=== PATIENT | female | born 1980 | race Caucasian/White ===

== ENCOUNTER 2023-09-30 12:35 | Emergency (ER) | payer SELFPAY ==
[2023-09-30] VITALS (9 sets, daily range): BP systolic 112–148; BP diastolic 62–100; PULSE 74–110; RESP 16–20; TEMP 36.7; O2SAT 99–100; BMI 22.6
--- NOTE | 2023-09-30 12:38 | HMH.EDGENADL ---
Discharge Plan Disposition Patient Disposition: Home, Self-Care Prescriptions Prescriptions: New prednisone 20 mg tablet 40 mg PO DAILY 5 Days Qty: 10 0RF methocarbamol 750 mg tablet 1,500 mg PO TID 5 Days Qty: 30 0RF No Action losartan-hydrochlorothiazide 50-12.5 mg tablet 1 tab PO DAILY Patient Comments: TAKE 1 TABLET BY MOUTH ONCE DAILY Referrals Follow up/Referrals: Provider,Referral, [Referring] - See instructions Activity Restrictions/Add. Instructions Additional Instructions/Restrictions: Call your family doctor to establish care for this visit to the emergency department and schedule follow-up within 48 hours to ensure improvement. If you have any worsening of your condition or any other concerning signs or symptoms, return to the emergency department or your primary care doctor for further evaluation. Prednisone each morning for the next 5 days with plenty of food and water to prevent GI upset and kidney dysfunction. Clinical Impressions Clinical Impression: Strain of lumbar region Instructions Patient Instructions: DI for Low Back Pain Discharge ED Provider: Leon German General Adult HPI <Yuri Roy MD - Last Filed: 09/30/23 15:20> General Chief complaint: Back Pain/Injury Stated complaint: lower back pain Time Seen by Provider: 09/30/23 12:38 History of Present Illness HPI narrative: The patient presents with a chief complaint of severe lower back pain that started on Friday. She reports that the pain worsened after bending over to pick something up, feeling a crunch in the back. The patient has a history of a back injury in March 2022, which was managed at [facility] with an RFA, epidural injections. 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 Imaging at that time revealed a herniated disc at L2-L3, pressing on a nerve and causing radiating pain down the leg, through the groin, and stopping at the knee. Another imaging showed issues at L4-L5 as well. The patient underwent epidural injections and bilateral ablation in January of the past year. Since Friday, she has experienced constant pain in the lower back on the left side, which comes up a little bit onto the left side. She reports feeling significant pressure when sitting straight up, and associated numbness and changes in sensation in her groin area. Additionally, she has noted several episodes of urinary incontinence which is a new symptom for her, with no associated pain, but denies any bowel incontinence. The patient has a medical history of type 2 diabetes and is currently taking metformin and glipizide. She recently stopped taking Ozempic. She denies any fevers or chills. Denies any recreational drug use. Please note that above description of symptoms, in this electronic medical record under categorization of recalled from ER triage doctor by RN are reflective of an initial nursing assessment, however, is not reflective of my full history and physical exam that was personally taken and clarified. Consequentially, this preceding description of symptoms, which may include the patient's categorized chief complaint in the EMR, do not reflect my personal clinical impression, and the ultimate description of history of present illness and patient stated complaints should be deferred to this section of the note. Unless stated otherwise or congruent with this section of the note, additional signs, symptoms, or incongruence should be interpreted as inaccurate with my clinical impression. Related Data Home Medications Medication Instructions Recorded Confirmed losartan 50 mg-hydrochlorothiazide 1 tab PO DAILY 09/30/23 09/30/23 12.5 mg tablet Previous Rx's Medication Instructions Recorded methocarbamol 750 mg tablet 1,500 mg (2 x 750 mg) PO TID 5 09/30/23 days #30 tabs prednisone 20 mg tablet 40 mg (2 x 20 mg) PO DAILY 5 days 09/30/23 #10 tabs Allergies Allergy/AdvReac Type Severity Reaction Status Date / Time No Known Allergies Allergy Verified 09/30/23 13:15 [facility] <Yuri Roy MD - Last Filed: 09/30/23 15:20> [facility] Disclaimer: The information contained in this section may have been updated after the patient was seen, as this information can be updated by other users. Social History (Updated 09/30/23 @ 15:20 by Yuri Roy MD) Smoking Status: Never smoker alcohol intake: former current occupational status: other Travel in the last 8 weeks: None <Yuri Roy MD - Last Filed: 09/30/23 15:20> ROS Obtained: Yes other As per HPI Physical Exam <Yuri Roy MD - Last Filed: 09/30/23 15:20> General General appearance: alert and in no apparent distress Head Head exam: atraumatic and normocephalic Eye Eye exam: Present normal appearance Neck Neck exam: Present normal inspection Chest Chest inspection: Present normal inspection and symmetric chest wall rise Respiratory Respiratory exam: Present normal lung sounds bilaterally; Absent respiratory distress Cardiovascular Cardiovascular exam: Present regular rate and normal rhythm Abdominal Exam Abdominal exam: Present soft Neurological Exam Neurological exam: Present alert and oriented X3 Psychiatric Psychiatric exam: Present normal affect and normal mood Skin Skin exam: Present warm and dry Other Other exam information: 1+ reflexes in bilateral lower extremities, left S1 distributional paresthesias, positive straight leg raise test, distal pulses palpable and equal in bilateral lower extremities, midline and left paraspinal tenderness to palpation. Medical Decision Making <Yuri Roy MD - Last Filed: 09/30/23 15:20> Medical Records Medical records reviewed: Yes I reviewed the patient's medical records. Walter Inquiry Pt receiving controlled substance: No Vital Signs: 09/30/23 12:36 09/30/23 13:15 09/30/23 13:24 Temperature 98.1 F Temperature Source Oral Pulse Rate 110 H Pulse Rate [Right] 108 H Respiratory Rate 20 Blood Pressure 148/89 H Blood Pressure [Right Arm] 148/100 H Blood Pressure Mean Blood Pressure Mean [Right Arm] 116 Blood Pressure Source [Right Arm] Automatic Cuff 02 Sat by Pulse Oximetry 99 99 99 Oxygen Delivery Method Room Air Room Air 09/30/23 13:30 09/30/23 14:00 09/30/23 14:30 Temperature Temperature Source Pulse Rate 101 H 89 74 Pulse Rate [Right] Respiratory Rate Blood Pressure 143/90 H 134/70 127/62 Blood Pressure [Right Arm] Blood Pressure Mean 118 101 Blood Pressure Mean [Right Arm] Blood Pressure Source [Right Arm] 02 Sat by Pulse Oximetry 99 99 100 Oxygen Delivery Method Room Air 09/30/23 15:00 09/30/23 15:30 Temperature Temperature Source Pulse Rate 74 74 Pulse Rate [Right] Respiratory Rate Blood Pressure 126/79 118/70 Blood Pressure [Right Arm] Blood Pressure Mean 100 86 Blood Pressure Mean [Right Arm] Blood Pressure Source [Right Arm] 02 Sat by Pulse Oximetry 100 100 Oxygen Delivery Method Room Air Lab Data Lab Results 09/30/23 12:41: Urine Color Yellow, Urine Appearance Clear, Urine pH 6.0, Ur Specific [place] 1.010, Urine Protein Negative, Urine Glucose (UA) Negative, Urine Ketones Negative, Urine Blood Negative, Urine Nitrate Negative, Urine Bilirubin Negative, Urine Urobilinogen 0.2, Ur Leukocyte Esterase Negative, Urine RBC None, Urine WBC None, Ur Squamous Epith Cells 3-5, Urine Bacteria None 09/30/23 13:25: WBC 11.8 H, RBC 4.89, Hgb 12.8, Hct 41.1, MCV 84.1, MCH 26.2 L, MCHC 31.2 L, RDW 15.1, Plt Count 414, MPV 8.0, Neut % (Auto) 71.2, Lymph % (Auto) 22.2, [place] % (Auto) 4.1, Eos % (Auto) 1.5, Baso % (Auto) 1.0, Neut # (Auto) 8.4 H, Lymph # (Auto) 2.6, [place] # (Auto) 0.5, Eos # (Auto) 0.2, Baso # (Auto) 0.1, Sodium 136, Potassium 3.8, Chloride 103, Carbon Dioxide 23, Anion Gap 13.8, BUN 8, Creatinine 0.70, Estimated Creat Clear 104, Estimated GFR 91, Est GFR ( Amer) 111, Glucose 144 H, Calcium 9.5, Total Bilirubin 0.3, AST 27, ALT 29, Alkaline Phosphatase 71, Total Protein 7.6, Albumin 4.5, Globulin 3.1, Albumin/Globulin Ratio 1.5 09/30/23 13:25 09/30/23 13:25 Orders (Tests/Meds): ED MEDICATIONS Discontinued Medications Generic Name Dose Route Start Last Admin Trade Name Freq PRN Reason Stop Dose Admin Dexamethasone Sodium Phosphate 10 mg 09/30/23 15:31 09/30/23 17:10 Dexamethasone 4mg/Ml 1ml Vial IV 09/30/23 15:32 10 mg ONCE ONE Administration Gadoteridol 12 ml 09/30/23 16:50 09/30/23 16:51 Gadoteridol Inj 20ml Syringe IV 09/30/23 16:51 12 ml ONCE ONE Administration Hydromorphone HCl 0.5 mg 09/30/23 13:08 09/30/23 13:18 Hydromorphone 4 Mg/Ml Syringe IV 09/30/23 13:09 0.5 mg ONCE ONE Administration Sodium Chloride 10 ml 09/30/23 16:50 09/30/23 16:51 Sodium Chloride 0.9% 10ml Syr (Rad Only) IV 09/30/23 16:51 10 ml ONCE ONE Administration ORDERS Category Date Time Status CBC w/Auto Diff [Complete Blood Count Auto Diff] Stat Lab 09/30/23 13:25 Completed CMP [Comprehensive Metabolic Panel] Stat Lab 09/30/23 13:25 Completed UA [Urinalysis and Microscopic] Stat Lab 09/30/23 12:41 Completed Medical Decision Narrative: Patient with history and exam per above presenting for evaluation of back pain Diagnoses considered include cauda equina syndrome, conus medullary syndrome, radiculopathy, lumbosacral strain, lower clinical index of suspicion for epidural abscess, malignancy, or pathologic fracture. ED workup and treatment included: CBC, CMP, urinalysis, postvoid residual 140 immediately after voiding on bladder scan, consequently, in commendation with new history of incontinence, paresthesias and saddle distribution, as well as significant worsening pain in the setting of known disc disease, MRI ordered to further evaluate after shared decision making involving MRI here versus transfer to outside hospital. She was treated with hydromorphone 0.5 mg x 1. Observation status was initiated while awaiting results of MRI. Imaging is pending at this time. Care was transferred to incoming physician. <Leon German MD - Last Filed: 09/30/23 17:45> Vital Signs: 09/30/23 12:36 09/30/23 13:15 09/30/23 13:24 Temperature 98.1 F Temperature Source Oral Pulse Rate 110 H Pulse Rate [Right] 108 H Respiratory Rate 20 Blood Pressure 148/89 H Blood Pressure [Right Arm] 148/100 H Blood Pressure Mean Blood Pressure Mean [Right Arm] 116 Blood Pressure Source [Right Arm] Automatic Cuff 02 Sat by Pulse Oximetry 99 99 99 Oxygen Delivery Method Room Air Room Air 09/30/23 13:30 09/30/23 14:00 09/30/23 14:30 Temperature Temperature Source Pulse Rate 101 H 89 74 Pulse Rate [Right] Respiratory Rate Blood Pressure 143/90 H 134/70 127/62 Blood Pressure [Right Arm] Blood Pressure Mean 118 101 Blood Pressure Mean [Right Arm] Blood Pressure Source [Right Arm] 02 Sat by Pulse Oximetry 99 99 100 Oxygen Delivery Method Room Air 09/30/23 15:00 09/30/23 15:30 Temperature Temperature Source Pulse Rate 74 74 Pulse Rate [Right] Respiratory Rate Blood Pressure 126/79 118/70 Blood Pressure [Right Arm] Blood Pressure Mean 100 86 Blood Pressure Mean [Right Arm] Blood Pressure Source [Right Arm] 02 Sat by Pulse Oximetry 100 100 Oxygen Delivery Method Room Air Lab Data Lab Results 09/30/23 12:41: Urine Color Yellow, Urine Appearance Clear, Urine pH 6.0, Ur Specific [place] 1.010, Urine Protein Negative, Urine Glucose (UA) Negative, Urine Ketones Negative, Urine Blood Negative, Urine Nitrate Negative, Urine Bilirubin Negative, Urine Urobilinogen 0.2, Ur Leukocyte Esterase Negative, Urine RBC None, Urine WBC None, Ur Squamous Epith Cells 3-5, Urine Bacteria None 09/30/23 13:25: WBC 11.8 H, RBC 4.89, Hgb 12.8, Hct 41.1, MCV 84.1, MCH 26.2 L, MCHC 31.2 L, RDW 15.1, Plt Count 414, MPV 8.0, Neut % (Auto) 71.2, Lymph % (Auto) 22.2, [place] % (Auto) 4.1, Eos % (Auto) 1.5, Baso % (Auto) 1.0, Neut # (Auto) 8.4 H, Lymph # (Auto) 2.6, [place] # (Auto) 0.5, Eos # (Auto) 0.2, Baso # (Auto) 0.1, Sodium 136, Potassium 3.8, Chloride 103, Carbon Dioxide 23, Anion Gap 13.8, BUN 8, Creatinine 0.70, Estimated Creat Clear 104, Estimated GFR 91, Est GFR ( Amer) 111, Glucose 144 H, Calcium 9.5, Total Bilirubin 0.3, AST 27, ALT 29, Alkaline Phosphatase 71, Total Protein 7.6, Albumin 4.5, Globulin 3.1, Albumin/Globulin Ratio 1.5 Orders (Tests/Meds): ED MEDICATIONS Discontinued Medications Generic Name Dose Route Start Last Admin Trade Name Freq PRN Reason Stop Dose Admin Dexamethasone Sodium Phosphate 10 mg 09/30/23 15:31 09/30/23 17:10 Dexamethasone 4mg/Ml 1ml Vial IV 09/30/23 15:32 10 mg ONCE ONE Administration Gadoteridol 12 ml 09/30/23 16:50 09/30/23 16:51 Gadoteridol Inj 20ml Syringe IV 09/30/23 16:51 12 ml ONCE ONE Administration Hydromorphone HCl 0.5 mg 09/30/23 13:08 09/30/23 13:18 Hydromorphone 4 Mg/Ml Syringe IV 09/30/23 13:09 0.5 mg ONCE ONE Administration Sodium Chloride 10 ml 09/30/23 16:50 09/30/23 16:51 Sodium Chloride 0.9% 10ml Syr (Rad Only) IV 09/30/23 16:51 10 ml ONCE ONE Administration ORDERS Category Date Time Status CBC w/Auto Diff [Complete Blood Count Auto Diff] Stat Lab 09/30/23 13:25 Completed CMP [Comprehensive Metabolic Panel] Stat Lab 09/30/23 13:25 Completed UA [Urinalysis and Microscopic] Stat Lab 09/30/23 12:41 Completed Medical Decision Narrative: Patient with history and exam per above presenting for evaluation of back pain Diagnoses considered include cauda equina syndrome, conus medullary syndrome, radiculopathy, lumbosacral strain, lower clinical index of suspicion for epidural abscess, malignancy, or pathologic fracture. ED workup and treatment included: CBC, CMP, urinalysis, postvoid residual 140 immediately after voiding on bladder scan, consequently, in commendation with new history of incontinence, paresthesias and saddle distribution, as well as significant worsening pain in the setting of known disc disease, MRI ordered to further evaluate after shared decision making involving MRI here versus transfer to outside hospital. She was treated with hydromorphone 0.5 mg x 1. Observation status was initiated while awaiting results of MRI. Imaging is pending at this time. Care was transferred to incoming physician. Maxi: I assumed primary responsibility for this patient after signout from previous physician. On my evaluation, patient ambulatory, very well-appearing. Able to void spontaneously. Patient was given 10 mg Decadron out of concern for radiculopathy. Independent rotation of workup with no acute findings on hematologic or urine. MRI of the lumbar spine was independently interpreted and without any significant disc herniations or stenosis posteriorly. Widely patent spinal canal. Because patient at baseline without signs or symptoms of clinical decompensation, deemed appropriate for discharge. Results were relayed to patient who voiced understanding and were agreeable to outpatient management and follow up. I discussed my clinical impression with patient and answered all questions. At this time, the evidence for any other entities in the differential is insufficient to warrant any further testing or ED observation. This was explained as well. Advisory was given that persistent or worsening symptoms require further evaluation. I confirmed the understanding of this discussion. Critical Care <Yuri Roy MD - Last Filed: 09/30/23 15:20> Critical Care Time Critical Care Time: No
--- NOTE | 2023-09-30 12:57 | PC.NURSE ---
Dr. Roy at [facility] for pt eval
[2023-09-30 13:19] LABS: Microscopic, Urine URINE MICROSCOPIC (MICROSCOPIC)
[2023-09-30 13:22] LABS: Appearance,Urine CLEAR (Clear); Bilirubin,Urine Negative (Negative); Blood, Urine Negative (Negative); Color,Urine YELLOW (Yellow); Glucose,Urine (UA) Negative (Negative); Ketones,Urine Negative (Negative); Leukocyte Esterase,Urine Negative (Negative); Nitrate,Urine Negative (Negative); Protein,Urine Negative (Negative); Urobilinogen,Urine 0.2 EU/dl (0.2)
[2023-09-30 13:46] LABS: Chloride 103 mmol/L (98-107); Potassium 3.8 mmoL/L (3.5-5.1); Sodium 136 mmol/L (136-145)
[2023-09-30 13:48] LABS: Blood Urea Nitrogen 8 mg/dl (7-17); Creatinine Clearance Estimated 104 mL/min (50-200); Estimated Glomerular Filt Rate 91 ml/min (>60); GFR (African American) 111 ML/MIN (>60)
[2023-09-30 13:49] LABS: Alanine Aminotransferase 29 U/L (12-78); Albumin Level 4.5 g/dl (3.5-5.0); Albumin/Globulin Ratio 1.5 (1.1-1.8); Alkaline Phosphatase 71 U/L (38-126); Anion Gap 13.8 mEq/L (5-15); Aspartate Amino Transferase 27 U/L (14-36); Bilirubin,Total 0.3 mg/dl (0.2-1.3); Calcium 9.5 mg/dl (8.4-10.2); Carbon Dioxide 23 mmol/L (22.0-30.0); Globulin 3.1 g/dL (1.3-3.2); Glucose 144 mg/dl (74-100); Total Protein,Serum 7.6 g/dl (6.3-8.2)
--- NOTE | 2023-09-30 13:49 | PC.NURSE ---
pt had 470ML in her bladder on bladder scan. pt was able to ambulate and void
[2023-09-30 13:50] LABS: Basophils # 0.1 K/mm3 (0-0.2); Eosinophils # 0.2 K/mm3 (0.0-0.4); Eosinophils % 1.5 % (0.1-12.0); Hematocrit 41.1 % (37.0-47.0); Hemoglobin 12.8 g/dL (12.2-16.2); Lymphocytes # 2.6 K/mm3 (0.7-4.5); Lymphocytes % 22.2 % (10-50); Mean Corpuscular HGB Conc 31.2 g/dL (31.8-35.4); Mean Corpuscular Hemoglobin 26.2 pg (27.0-31.2); Mean Corpuscular Volume 84.1 fl (81-99); Monocytes # 0.5 K/mm3 (0.1-1.0); Monocytes % 4.1 % (1.7-9.3); Neutrophils # 8.4 K/mm3 (1.8-7.8); Neutrophils % 71.2 % (37.0-80.0); Platelet Count 414 K/mm3 (142-424); Red Blood Count 4.89 M/mm3 (4.20-5.40); Red Cell Distribution Width 15.1 % (11.5-17.5); White Blood Count 11.8 K/mm3 (4.8-10.8)
--- NOTE | 2023-09-30 13:55 | PC.NURSE ---
post void bladder scan 140 ml
--- NOTE | 2023-09-30 14:31 | MR_ITS ---
PROCEDURE INFORMATION: Exam: MR Lumbar Spine Without and With Contrast Exam date and time: 09/30/2023 4:24 PM Age: 42 years old Clinical indication: Other: Low back pain; Additional info: Back pain, urinary retention, concern for deny TECHNIQUE: Imaging protocol: Magnetic resonance imaging of the lumbar spine without and with contrast. Contrast material: ISOVUE; Contrast volume: 12 ml; Contrast route: IV; COMPARISON: No relevant prior studies available. FINDINGS: Bones/joints: Sudden loss of T2 disc signal and height from L4 through S1. Normal marrow signal and vertebral body height. Spinal cord: Visualized cord, conus medullaris and cauda equina are unremarkable without compression. L1-L2: No significant disc bulge or herniation. No severe spinal canal stenosis. No significant neural foraminal narrowing. L2-L3: L2-L3 minimal posterior disc protrusion without significant spinal canal or neural foraminal stenosis. L3-L4: L3-L4 small upfo-tklhthy-ipnq-right posterior disc protrusion resulting in mild left greater than right neural foraminal stenosis without significant spinal canal stenosis. L4-L5: L4-L5 small broad-based posterior disc protrusion with T2 hyperintensity zone at the left subarticular recess resulting in mild bilateral neural foraminal stenosis without significant spinal canal stenosis. L5-S1: L5-S1 small posterior disc protrusion with T2 hyperintensity zone resulting in mild bilateral neural foraminal stenosis without significant spinal canal stenosis. Soft tissues: Unremarkable. IMPRESSION: Multilevel mild discogenic degenerative changes greatest at L4-L5 with neural foraminal stenosis as detailed above. No MRI evidence of cauda equina
--- NOTE | 2023-09-30 14:34 | PC.NURSE ---
[facility] [place]/Annalisa approved for MRI [facility] states that they can do the MRI around 1700 aware
--- NOTE | 2023-09-30 14:39 | PC.NURSE ---
[place] given, remote for tv, call light in place, lights dimmed and pt updated about MRI at 1700
--- NOTE | 2023-09-30 15:55 | PC.NURSE ---
MRI called and were on the way to get this pt
--- NOTE | 2023-09-30 15:59 | PC.NURSE ---
Pt gone to MRI via wheelchair
[2023-09-30] MEDS: SODIUM CHLORIDE 0.9% 10ML SYR (RAD ONLY) 10 ML IV (16:51)
[2023-09-30] MEDS: GADOTERIDOL INJ 20ML SYRINGE 12 ML IV (16:51)
--- NOTE | 2023-09-30 17:06 | PC.NURSE ---
Pt returned to room from MRI
[2023-09-30] MEDS: DEXAMETHASONE 4MG/ML 1ML VIAL 10 MG IV (17:10)
== END 2023-09-30 18:00 | disposition home or self-care (01) ==
PROVIDERS: Emergency Medicine; Emergency Provider Emergency Medicine; PCP Pediatrics
DX: S39.012A Strain of muscle, fascia and tendon of lower back, initial encounter (principal); R32 Unspecified urinary incontinence; R20.2 Paresthesia of skin; E11.9 Type 2 diabetes mellitus without complications; Z87.39 Personal history of other diseases of the musculoskeletal system and connective tissue; X50.0XXA Overexertion from strenuous movement or load, initial encounter; Z79.84 Long term (current) use of oral hypoglycemic drugs
CPT/HCPCS: 72158; 80053; 81001; 85025; 96374; 96375; 99285; A9576

== ENCOUNTER 2024-05-14 16:42 | Outpatient (CLI) | payer OTHER, SELFPAY ==
--- NOTE | 2024-05-14 16:50 | MR_ITS ---
PROCEDURE INFORMATION: Exam: MR Lumbar Spine Without Contrast Exam date and time: 05/14/2024 4:52 PM Age: 43 years old Clinical indication: Low back pain; Additional info: Increased lbp TECHNIQUE: Imaging protocol: Magnetic resonance imaging of the lumbar spine without contrast. COMPARISON: MR LUMBAR SPINE WO/W CON 09/30/2023 4:24 PM FINDINGS: Bones/joints: The alignment is anatomic. There is no fracture. No suspicious marrow signal. There is disc desiccation L4-S1 unchanged without significant loss of disc space height. Spinal cord: Visualized cord, conus medullaris and cauda equina are unremarkable. L1-L2: No significant disc bulge or herniation. No severe spinal canal stenosis. No significant neural foraminal narrowing. L2-L3: There is minimal left-sided eccentric diffuse disc bulging present without stenosis unchanged. L3-L4: There is diffuse disc bulging with superimposed left-sided subarticular/foraminal zone focal disc protrusion without significant spinal canal stenosis unchanged. Minimal facet arthrosis with mild left neural foraminal stenosis unchanged. L4-L5: Minimal diffuse disc bulging and facet arthrosis without spinal canal stenosis unchanged. Small posterior annular disc tear again present. Stable mild bilateral neural foraminal stenosis. L5-S1: There is a minimal central focal disc protrusion with superimposed diffuse disc bulging and posterior annular tear again present not causing spinal canal stenosis. Minimal bilateral facet arthrosis with minimal narrowing of both neural foramina unchanged. Soft tissues: Unremarkable. IMPRESSION: Stable mild degenerative disc disease of the lumbar spine without significant spinal canal stenosis, as described.
== END 2024-05-14 23:59 | disposition home or self-care (01) ==
LOC: RAD 16:44
PROVIDERS: PCP Family Medicine; Visit Provider Nurse Practitioner Family
DX: M48.061 Spinal stenosis, lumbar region without neurogenic claudication (principal); M54.50 Low back pain, unspecified; M79.605 Pain in left leg
CPT/HCPCS: 72148

== ENCOUNTER 2024-08-04 08:26 | Outpatient (CLI) | payer OTHER, SELFPAY ==
[2024-08-04 19:10] LABS: Basophils # 0.1 K/mm3 (0-0.2); Basophils % 0.9 % (0.1-2.0); Eosinophils # 0.3 K/mm3 (0.0-0.4); Eosinophils % 3.4 % (0.1-12.0); Hematocrit 44.1 % (37.0-47.0); Hemoglobin 13.7 g/dL (12.2-16.2); Lymphocytes # 2.4 K/mm3 (0.7-4.5); Mean Corpuscular HGB Conc 31.1 g/dL (31.8-35.4); Mean Corpuscular Hemoglobin 27.4 pg (27.0-31.2); Mean Corpuscular Volume 88.2 fl (81-99); Mean Platelet Volume 9.9 fl (7.4-10.4); Monocytes # 0.6 K/mm3 (0.1-1.0); Monocytes % 6.3 % (1.7-9.3); Neutrophils # 6.4 K/mm3 (1.8-7.8); Neutrophils % 65.1 % (37.0-80.0); Nucleated Red Blood Cells # 0 10^3/uL; Nucleated Red Blood Cells % 0 %; Platelet Count 515 K/mm3 (142-424); Red Cell Distribution Width 14.3 % (11.5-17.5); Red Cell Distribution Width-SD 45.5 fL; White Blood Count 9.8 K/mm3 (4.8-10.8)
[2024-08-04 19:12] LABS: Alanine Aminotransferase 24 U/L (12-78); Albumin Level 4.8 g/dl (3.5-5.0); Albumin/Globulin Ratio 1.5 (1.1-1.8); Alkaline Phosphatase 81 U/L (38-126); Anion Gap 18.5 mEq/L (5-15); Aspartate Amino Transferase 21 U/L (14-36); Bilirubin,Total 0.5 mg/dl (0.2-1.3); Blood Urea Nitrogen 8 mg/dl (7-17); Calcium 9.6 mg/dl (8.4-10.2); Carbon Dioxide 27 mmol/L (22.0-30.0); Chloride 98 mmol/L (98-107); Chol/HDL Ratio 3.6 (1-3.5); Cholesterol 187 mg/dl (140-200); Estimated Glomerular Filt Rate 91 ml/min (>60); GFR (African American) 110 ML/MIN (>60); Globulin 3.2 g/dL (1.3-3.2); Glucose 99 mg/dl (74-100); HDL Cholesterol 52 mg/dl (40-60); Potassium 4.5 mmoL/L (3.5-5.1); Sodium 139 mmol/L (136-145); Triglycerides 83 mg/dl (30-150); VLDL Cholesterol 17 mg/dL (0-40)
[2024-08-04 19:23] LABS: 25-OH Vitamin D, Total 44.9 ng/mL (30-100)
[2024-08-04 19:28] LABS: Direct LDL Cholesterol 108.07 mg/dL (100-129)
[2024-08-04 19:48] LABS: Creatinine,Urine Random 114 mg/dL (Not Estab.)
[2024-08-04 19:51] LABS: Thyroid Stimulating Hormone 0.28 uIU/mL (0.465-4.68)
[2024-08-04 20:08] LABS: Microalbumin/Creatinine Ratio 8.9
[2024-08-04 20:10] LABS: Vitamin B12 304 pg/mL (239-931)
[2024-08-04 21:01] LABS: Hemoglobin A1C 5.8 % (4.0-6.0)
[2024-08-05 14:10] LABS: Free T4 (Free Thyroxine) 1.77 ng/dl (0.78-2.19)
[2024-08-06 08:22] LABS: Triiodothyronine (T3) Free 3.3 pg/mL (2.0-4.4); Triiodothyronine (T3) Total 121 ng/dL (71-180)
== END 2024-08-04 23:59 | disposition home or self-care (01) ==
LOC: LAB.DROPOF 08-05 10:53
PROVIDERS: PCP Nurse Practitioner; Visit Provider Nurse Practitioner
DX: E11.9 Type 2 diabetes mellitus without complications (principal); I10 Essential (primary) hypertension
CPT/HCPCS: 80053; 80061; 82043; 82306; 82570; 82607; 83036; 84439; 84443; 84480; 84481; 85025

== ENCOUNTER 2024-08-05 20:57 | Outpatient (CLI) | payer OTHER, SELFPAY ==
[2024-08-05 22:19] LABS: Thyroid Stimulating Hormone 0.31 uIU/mL (0.465-4.68)
== END 2024-08-05 23:59 | disposition home or self-care (01) ==
LOC: LAB 20:58
PROVIDERS: PCP Nurse Practitioner; Visit Provider Nurse Practitioner
DX: E11.9 Type 2 diabetes mellitus without complications (principal); R79.89 Other specified abnormal findings of blood chemistry; Z79.84 Long term (current) use of oral hypoglycemic drugs; Z79.85 Long-term (current) use of injectable non-insulin antidiabetic drugs
CPT/HCPCS: 84443

== ENCOUNTER 2024-11-30 14:40 | Outpatient (CLI) | payer OTHER, SELFPAY ==
--- OUTSIDE RECORDS SUMMARY | 2024-11-30 14:42 | XMS_ITS | Clinical Summary ---
Author Organization [facility] Address [address] [id number] Care Team Providers Care Leasing Specialist Name Role Phone Gopi Chan MD Primary Care Provider [phone] Allergies No known active allergies Medications losartan-hydro CHLOROthiazide (Hyzaar) 50-12.5 MG tablet Take 1 tablet by mouth 1 (one) time each day. Active metFORMIN (Glucophage) 500 MG tablet Take 1 tablet (500 mg) by mouth 2 (two) times a day. 5 Active oxybutynin XL (Ditropan-XL) 10 MG 24 hr tablet Take 1 tablet (10 mg) by mouth 1 (one) time each day. Active Ozempic, 0.25 or 0.5 MG/DOSE, 2 MG/3ML solution pen-injector 0.25 MG (0.368 ML) SUBCUTANEOUSLY WEEKLY FOR 4 WEEKS 5 Active Social History Tobacco Use Types Packs/Day Years Used Date Smoking Tobacco: Never Smokeless Tobacco: Never Tobacco Cessation:Counseling Given: Not Answered Alcohol Use Standard Drinks/Week Comments Never 0 (1 standard drink = 0.6 oz pur e alcohol) Comments No Sex and Gender Information Value Date Recorded Sex Assigned at Not on file Legal Sex Female 7:40 PM EDT Gender Identity Not on file Sexual Orientation Not on file Last Filed Vital Signs Vital Sign Reading Time Taken Comments Blood Pressure 134/81 06/04/2024 10:17 AM EST Pulse 106 06/04/2024 10:17 AM EST Temperature 36.8 C (98.2 F) 06/04/2024 10:17 AM EST Respiratory Rate 16 06/04/2024 10:17 AM EST Oxygen Saturation 98% 06/04/2024 10:17 AM EST Inhaled Oxygen Concentration - - Weight 69.9 kg (154 lb) 06/04/2024 10:17 AM EST Height 167.6 cm (5' 6 ) 06/04/2024 10:17 AM EST Body Mass Index 24.86 06/04/2024 10:17 AM EST Plan of Treatment Health Maintenance Due Date Last Done Comments [facility]-Depression Screening 1979 [facility]-/Child/Adol SDOH Screenings 1979 [facility]-Varicella Vaccines (1 of 2 - 13+ 2-dose series) 10/16/1992 HPV Vaccines (1 - 3-dose series) 10/16/1994 [facility]- SDOH Screenings 10/16/1997 [facility]-Adult SDOH Screenings 10/16/1997 [facility]-Hepatitis B Vaccines (1 of 3 - 19+ 3-dose series) 10/16/1998 [facility]-Pap Smear 10/16/2000 [facility]-Cervical Cancer Screening 10/16/2009 [facility]-HPV/Cotest 10/16/2009 [facility]-FFZVC-12 Vaccine ( season) 2023 CT Colonography 10/16/2024 Colonoscopy 10/16/2024 FIT-DNA 10/16/2024 FIT 10/16/2024 FOBT 10/16/2024 Sigmoidoscopy 10/16/2024 [facility]-Colorectal Cancer Screening 10/16/2024 [facility]-Influenza Vaccine (#1) 2024 02/09/2024 [facility]-Zoster Vaccines (1 of 2) 10/16/2029 [facility]-DTaP,Tdap,and Td Vaccine s (3 - Td or Tdap) 02/08/2034 02/09/2024, 06/16/2013 [facility]-HIB Vaccines Aged Out No longer e ligible based on patient's age to complete this topic [facility]-Hepatitis A Vaccines Aged Out No longer eligible based on patient's age to complete this topic [facility]-IPV Vaccines Aged Out No longer e ligible based on patient's age to complete this topic [facility]-Pneumococcal Vaccine: Pediatrics (0 to 5 Years) and At-Risk Patients (6 to 49 Years) Aged Out No longer eligible b ased on patient's age to complete this topic [facility]-Rotavirus Vaccines Aged Out No lo nger eligible based on patient's age to complete this topic Insurance Care Teams Leasing Specialist Relationship Specialty Start Date End Date Gopi Chan MD [facility] [place] [address] PCP - General 06/01/24
--- OUTSIDE RECORDS SUMMARY | 2024-11-30 14:42 | XMS_ITS | Encounter Summary ---
Author Organization [facility] Address [address] [id number] Care Team Providers Care Metal Hanger Name Role Phone Gopi Chan MD Primary Care Provider [phone] Reason for Referral * Consultation (Routine) - Closed Specialty Diagnoses / Procedures Referred By Jovanni t Referred To Contact Neurosurgery Diagnoses Left-sided low back pain with left-sided sciatica, unspecified chronicity Spinal stenosis of lumbar region, unspecified whether neurogenic claudication present Russ Bailey APRN [address] [place] [address] Phone: tel: fax: Referral ID Status Reason Start Date Expiration Date V isits Requested Visits Authorized [id number] Closed Specialty Services Required 05/26/2024 11/25/2025 1 1 Encounter Details Date Type Department Care Team (Late st Contact Info) Description 05/26/2024 [facility] [address] [place] [address] Russ Bailey APRN [address] [place] [address] Left-sided low back pain with left-sided sciatica, unspecified chronicity (Primary Dx); Spinal stenosis of lumbar region, unspecified whether neurogenic claudication present Social History Tobacco Use Types Packs/Day Years Used Date Smoking Tobacco: Never Assessed Comments Unknown Sex and Gender Information Value Date Recorded Sex Assigned at Not on file Legal Sex Female 7:40 PM EDT Gender Identity Not on file Sexual Orientation Not on file documented as of this encounter Plan of Treatment Scheduled Referrals Name Type Priority Associated Diagnoses Orde r Schedule Ambulatory Referral to Neurosurgery Outpatient Referral Routine Left-sided low back pain with left-sided sciatica, unspecified chronicity Spinal stenosis of lumbar region, unspecified whether neurogenic claudication present 1 Occurrences starting 05/26/2024 until 11/23/2025 documented as of this encounter Visit Diagnoses Diagnosis Left-sided low back pain with left-sided sciatica, unspecified chronicity- Primary Spinal stenosis of lumbar region, unspecified whether neurogenic claudication present documented in this encounter Care Teams Metal Hanger Relationship Specialty Start Date End Date Gopi Chan MD [address] [place] [address] PCP - General 06/01/24 documented as of this encounter
--- OUTSIDE RECORDS SUMMARY | 2024-11-30 14:42 | XMS_ITS | Clinical Summary ---
Author Organization [facility] Address [address] [place] [phone] Phone Care Team Providers Care Window Glazier Helper Name Role Phone Charlie French DO, Viral Unavailable [phone] Simin Olea APRN Primary Care Provider [phone] Allergies Active Allergy Reactions Criticality Noted Date Comments No Known Allergies 11/28/2010 Medications Brompheniramine -Pseudoeph-DM (BROMFED DM) 2-30-10 mg/5 mL Oral SyrupIndication s:Acute bronchitis, unspecified organism Take 5 mL by mouth 3 times daily. 118 mL 4 Active Additional Information Patient not taking.Reported on 08/26/2024 losartan-hydroc hlorothiazide (HYZAAR) 50-12.5 mg Oral TabletIndicatio ns:Benign essential HTN Take 1 tablet by mouth once daily 90 Tablet 3 4 Active oxybutynin (DITROPAN-XL) 10 mg Oral Tablet Extended Rel 24 hrIndications:P olyuria Take 1 tablet by mouth once daily 90 Tablet 4 Active Additional Information Patient not taking.Reported on 08/26/2024 metFORMIN (GLUCOPHAGE XR) 500 mg Oral ER 24 hr tabletIndicatio ns:Type 2 diabetes mellitus without complication, without long-term current use of insulin (HCC) Take 2 Tablets by mouth daily (with breakfast). 60 Tablet 4 Active benzonatate (TESSALON) 200 mg Oral Capsule Take 200 mg by mouth 3 times daily. Active DEXCOM G7 SENSOR Misc Device use as directed 5 Active methocarbamoL (ROBAXIN) 750 mg Oral Tablet TAKE 2 TABLETS BY MOUTH THREE TIMES A DAY FOR 5 DAYS 5 Active naproxen (NAPROSYN) 500 mg Oral Tablet Take 500 mg by mouth 2 times daily. 5 Active valACYclovir (VALTREX) 1 gram Oral Tablet 5 Active rosuvastatin (CRESTOR) 10 mg Oral Tablet Take 1 Tablet by mouth daily. 30 Tablet 11 5 Active tirzepatide (MOUNJARO) 2.5 mg/0.5 mL SubQ Pen Injector Subcutaneous (Inject under the skin) 2.5 mg once a week. 2 mL 2 5 Active Active Problems Problem Noted Date Diagnosed Date Acute left-sided low back pain 04/09/2022 Hypothyroid 06/16/2013 Encounters Date Type Department Care Team Description 08/30/2024 Results Follow-Up [facility] [place] [address] [place] [id number] Julian Mattson MD THYROID STIMULATING HORMONE, T4, FREE (THYROXINE), THYROID STIMULATING IMMUNE GLOBULINS -REF LAB, TSH RECEPTOR ANTIBODY (TRAB)-REF LAB from Last 3 Months Immunizations Immunization Administration Dates Next Due Tdap 06/16/2013 Surgical History Surgery Date Site/Laterality Comments CYST REMOVAL chest midline sternum DENTAL SURGERY permanent retainer bottom TUBAL LIGATION 04/28/2003 - 04/27/2004 SHOULDER ARTHROSCOPY 12/11/2017 Left LEFT SHOULDER ARTHROSCOPY, SUBACROMIAL DECOMPRESSION, PROXIMAL BICEPS TENODESIS ; Surgeon: Merrill Link MD; Location: [facility]; Service: Orthopedics Medical devices from this surgery are in the Medical Devices section. ABDOMEN SURGERY 01/05/03 Tubal ligation JOINT REPLACEMENT 12/11/2017 Left shoulder Medical History Medical History Date Comments Injury of left shoulder 07/18/2017 picked u p 5 gallon bucket of water, yanked shoulder Thyroid disease not taking medic ine for this at this time, sees Dr Lisa Zavala Hypothyroid Hypertension Diabetes mellitus (HCC) Family History Medical History Relation Name Comments COPD Father Andi quit smoking Diabetes Father Andi Lung Cancer Maternal Grandfather Cancer Mother Kimi skin High Blood Pressure Mother Kimi Diabetes Paternal Grandmother Stroke Paternal Grandmother Anesth Problems Neg Hx Relation Name Status Comments Father Andi Alive Maternal Grandfather Mother Kimi Alive Paternal Grandmother Social History Tobacco Use Types Packs/Day Years Used Date Smoking Tobacco: Never Smokeless Tobacco: Never Tobacco Cessation:Counseling Given: Not Answered Alcohol Use Standard Drinks/Week Comments No 0 (1 standard drink = 0.6 oz pur e alcohol) soc Overall Financial Resource Strain (CARDIA) Answe r Date Recorded How hard is it for you to pa y for the very basics like food, housing, medical care, and heating? Not hard at all 07/13/2020 PHQ-2 Answer Date Recorded PHQ-2 Total Score 0 09/12/2022 Hunger Vital Sign Answer Date Recorded Within the past 12 months, y ou worried that your food would run out before you got the money to buy more. Never true 07/14/19 21 Within the past 12 months, t he food you bought just didn't last and you didn't have money to get more. Never true 07/13/2020 PRAPARE - Transportation Answer Date Re corded In the past 12 months, has l ack of transportation kept you from medical appointments or from getting medications? No 06/26 In the past 12 months, has l ack of transportation kept you from meetings, work, or from getting things needed for daily living? No 07/13/2020 Comments No Sex and Gender Information Value Date Recorded Sex Assigned at Not on file Legal Sex Female 6:37 PM EDT Gender Identity Not on file Sexual Orientation Not on file Obstetrics History Para Term AB IAB SAB Ectopic Multiple Livin g Live Births 4 4 4 Date Outcome GA Total Labor Labor/2nd/3rd Weight Sex Type Anes PTL Jess A1 A5 Name Clin Term Term Term Term Last Filed Vital Signs Vital Sign Reading Time Taken Comments Blood Pressure 134/84 08/26/2024 7:32 AM EDT Pulse 105 08/26/2024 7:32 AM EDT Temperature 36.5 C (97.7 F) 07/04/2023 8:59 AM EST Respiratory Rate 16 08/26/2024 7:32 AM EDT Oxygen Saturation 98% 07/04/2023 8:59 AM EST Inhaled Oxygen Concentration - - Weight 68.9 kg (151 lb 12.8 oz) 08/26/2024 7:32 AM EDT Height 167.6 cm (5' 6 ) 08/26/2024 7:32 AM EDT Body Mass Index 24.5 08/26/2024 7:32 AM EDT Plan of Treatment Health Maintenance Due Date Last Done Comments Hepatitis B Vaccine (1 of 3 - 19+ 3-dose series) 10/16/1998 HPV/Pap Cotest 10/16/2009 Cervical Cancer Screening 10/15/2016 Pap Smear 10/15/2016 10/15/2013 (Declined) Breast Cancer Screening 2019 Annual Wellness Exam 07/25/2022 07/25/2021 DTaP/TDaP/Td (2 - Td or Tdap) 06/16/2023 06/16/2013 COVID-19 Vaccine ( season) 2023 Hemoglobin A1c 01/04/2024 07/04/2023, 12/27, 05/30/2022, Additional history exists Kidney Health: uACR 07/03/2024 07/04/2023 Cologuard 10/16/2024 Colon Cancer Screening 10/16/2024 Colonoscopy 10/16/2024 FIT 10/16/2024 Sigmoidoscopy 10/16/2024 Virtual Colonography 10/16/2024 Influenza Vaccine (#1) 2024 7 (Declined), 06/16/2015 (Declined) Diabetic Eye Exam 07/07/2025 07/08/2023, 03/08/2021 Kidney Health: eGFR 08/04/2025 08/04/2024, 07/04/2023, 05/30/2022, Additional history exists Lipids 08/04/2025 08/04/2024, 0311/2023, 05/30/2022, Additional history exists Meningococcal B Vaccine Aged Out No l onger eligible based on patient's age to complete this topic Pneumococcal Vaccine 0-49 Aged Out No longer eligible based on patient's age to complete this topic Goals Goal Patient Goal Type Associated Problems Recent Progress Patient-Stated? Author Maintain a healthy diet, exercise regularly and maintain an ideal body weight General No Laya Gillis LPN HEMOGLOBIN A1C < 7 Result Component 5.7( 9:39 AM EST) No Sharri Neal RN Medical Devices Implanted Type Area Producer Device Identifier Shelf Expiration Date Model / Serial / Lot [employer] Suture 1.3mm Y-Knot Flex - [id number] Implanted:Qty: 1 on 12/11/2017 by Merrill Link MD at [facility] Left: Shoulder CONMED:LINVATEC 11/01/2022 [id number] / / [id number] Procedures Procedure Name Priority Date/Time Associated Diagnosis Comments COMPREHENSIVE METABOLIC PANEL Routine 08/04/2024 LIPID PANEL REFLEX Routine 08/04/2024 MICROALBUMIN/CREATININ E RATIO URINE Routine 07/04/2023 9:39 AM EST Type 2 diabetes mellitus without complication, without long-term current use of insulin (HCC) HEMOGLOBIN A1C Routine 07/04/2023 9:39 AM EST Type 2 diabetes mellitus without complication, without long-term current use of insulin (HCC) DIABETES EYE EXAM Routine 03/08/2021 from Last 3 Months or Most Recently Relevant to Health Maintenance Results * LIPID PANEL REFLEX (08/04/2024) Triglycerides 83 MG/DL SEP OFFICE Comment:30-150 LDL Calculated 108.07 0 - 160 MG/DL SEP OFFICE Comment:100-129 HDL 52 >=40 MG/DL SEP OFFICE Comment:40-60 Blood VENOUS BLOOD / Unknown 08/04/2024 us Simin Olea TALENT DEVELOPMENT MANAGER CHEMISTRY ORDERABLES Final Res ult SEP OFFICE * COMPREHENSIVE METABOLIC PANEL (08/04/2024) GFR Non Afr Am 91 >=60 mL/min/1.73 m2 SEP OFFICE Comment:>60 Glucose Lvl 99 MG/DL SEP OFFICE Comment:74-100 AST 21 U/L SEP OFFICE Comment:14-36 ALT 24 U/L SEP OFFICE Comment: Blood VENOUS BLOOD / Unknown 08/04/2024 Simin Olea APRN CHEMISTRY ORDERABLES Final Res ult Performing Organization Address [facility] de Phone Number SEP OFFICE * MICROALBUMIN/CREATININE RATIO URINE (07/04/2023 9:39 AM EST) Urine Microalb <12.0 mg/L 07/04/2023 3:01 PM EST PREFERRED LAB [facility] Urine Creatinine 65.6 mg/dL 07/04/19 24 3:01 PM EST [facility]REFERR[facility] Ur Microalb/Creat 024 3:01 PM EST [facility]REFERR[facility] Comment: Because the albumin level is below the level of detection in this urine specimen, the laboratory is unable to calculate a reliable albumin/creatinine ratio. Microalbuminuria is unlikely if the urine albumin concentration is less than 20- 30 mg/L in a random specimen. Urine URINE SPECIMEN COLLECTION / Unknown 07/04/2023 9:39 AM EST 07/04/2023 9:39 AM EST Kyler Travis MD URINE ORDERABLES Final Result Performing Organization Address [facility] de Phone Number PREFERRED [facility] [address] [facility], [place] [address] * (ABNORMAL) HEMOGLOBIN A1C (07/04/2023 9:39 AM EST) Hgb A1C 5.7(H) 4.2 - 5.6 % 07/04/2023 2:55 PM EST [facility]REFERRED [facility] Est. Avg Glucose 117 mg/dL 07/04/2023 2:55 PM EST [facility] Blood VENOUS BLOOD / Unknown Venipuncture / Unknown 07/04/2023 9:39 AM EST 07/04/2023 9:39 AM EST Narrative PREFERRED [facility] - 07/04/2023 2:55 PM EST REFERENCE RANGE: Normal: 4.0-5.6% Pre-diabetes: 5.7-6.4% Provisional diagnosis of diabetes: >6.4% Hgb F>10% and anything which shortens red cell survival, such as hemolytic anemia, or unstable hemoglobin variants such as HbSS, HbSC, or HbCC, will lower the HbA1c value associated with a given level of glycemic control. Kyler Travis MD CHEMISTRY ORDERABLES Final Resu lt PREFERRED [facility] [address] [place] [id number] , [place] [address] * DIABETES EYE EXAM (03/08/2021) Left Diabetic Retinopathy Not Present Present/Not Present SEP OFFICE Right Diabetic Retinopathy Not Present Present/Not Present SEP OFFICE us Historical Provider HEALTH MAINTENANCE Final Res ult SEP OFFICE from Last 3 Months or Most Recently Relevant to Health Maintenance Insurance [address] [place] [address] [address] [id number] Advance Directives For more information, please contact: [phone] * Full Code (Latest Code Status on File) Date Activated Date Inactivated Comments 12/11/2017 11:28 AM 12/11/2017 4:36 PM Care Teams Window Glazier Helper Relationship Specialty Start Date End Date Simin Olea APRN [facility] [address] [place] [address] PCP - General Nurse Practitioner 08/26/24 Rajiv Guerra DO [address] [place] [phone] Family Medicine 06/16/13
--- OUTSIDE RECORDS SUMMARY | 2024-11-30 14:42 | XMS_ITS | Clinical Summary ---
Author Organization [facility] Address [address], [address] [place] [address] Care Team Providers Care Correction Officer [employer] [place] [employer] Name Role Phone Kyler Travis MD Primary Care Provider [phone] Allergies No known active allergies Medications ibuprofen (ADVIL;MOTRIN) 800 MG tablet Take 1 tablet by mouth 2 times daily as needed for Pain 60 tablet 09/24/2019 Active Social History Tobacco Use Types Packs/Day Years Used Date Smoking Tobacco: Never Smokeless Tobacco: Never Alcohol Use Standard Drinks/Week Comments Yes 0 (1 standard drink = 0.6 oz pur e alcohol) social Comments No Sex and Gender Information Value Date Recorded Sex Assigned at Not on file Legal Sex Female 2:26 PM EDT Gender Identity Not on file Sexual Orientation Not on file Last Filed Vital Signs Vital Sign Reading Time Taken Comments Blood Pressure 173/102 01/12/2020 1:38 PM EDT Pulse 105 01/12/2020 1:38 PM EDT Temperature 36.8 C (98.2 F) 01/12/2020 1:38 PM EDT Respiratory Rate 20 01/12/2020 1:38 PM EDT Oxygen Saturation 100% 01/12/2020 1:38 PM EDT Inhaled Oxygen Concentration - - Weight 72.6 kg (160 lb) 09/24/2019 2:31 PM EDT Height 167.6 cm (5' 6 ) 09/24/2019 2:31 PM EDT Body Mass Index 25.82 09/24/2019 2:31 PM EDT Plan of Treatment Not on file Insurance BCBS OUT OF STATE Care Teams Correction Officer [place] [facility] Relationship Specialty Start Date End Date Kyler Travis MD [address] [place] [address] [place] [phone] PCP - General 09/24/19
[2024-11-30 15:27] LABS: Hemoglobin A1C 5.5 % (4.0-6.0)
== END 2024-11-30 23:59 | disposition home or self-care (01) ==
LOC: LAB.DROPOF 14:40
PROVIDERS: Student in an Organized Health Care Education/Training Program; PCP Nurse Practitioner; Visit Provider Nurse Practitioner
DX: E11.9 Type 2 diabetes mellitus without complications (principal)
CPT/HCPCS: 83036

== ENCOUNTER 2024-12-13 13:30 | Outpatient (CLI) | payer OTHER, SELFPAY ==
--- OUTSIDE RECORDS SUMMARY | 2024-12-14 11:33 | XMS_ITS | Clinical Summary ---
Author Organization [facility] Address [address] [id number] Care Team Providers Care Oracle Drm Consultant Name Role Phone Gopi Chan MD Primary Care Provider [phone] Allergies No known active allergies Medications losartan-hydro [...] of 2 - 13+ 2-dose series) 10/16/1992 [facility]- SDOH Screenings 10/16/1997 [facility]-Adult SDOH Screenings 10/16/1997 [facility]-Hepatitis B Vaccines (1 of 3 - 19+ 3-dose series) 10/16/1998 [facility]-Pap Smear 10/16/2000 HPV Vaccines (1 - 3-dose SCD M series) 10/16/2006 [facility]-Cervical Cancer Screening 10/16/2009 [facility]-HPV/Cotest 10/16/2009 [id number] Vaccine ( season) 2023 CT Colonography 10/16/2024 [...] to complete this topic Insurance Care Teams Oracle Drm Consultant Relationship Specialty Start Date End Date Gopi Chan MD [facility] [place] [address] PCP - General 06/01/24
--- OUTSIDE RECORDS SUMMARY | 2024-12-14 11:33 | XMS_ITS | Clinical Summary ---
Author Organization [facility] Address [address], [address] [place] [address] Care Team Providers Care Aircraft Engine Mechanic Overhaul Name Role Phone Kyler Travis MD Primary Care Provider [phone] Allergies No known active allergies Medications ibuprofen [...] Insurance BCBS OUT OF STATE Care Teams Aircraft Engine Mechanic Overhaul Relationship Specialty Start Date End Date Kyler Travis MD [address] [place] [address] [place] [phone] PCP - General 09/24/19
--- OUTSIDE RECORDS SUMMARY | 2024-12-14 11:33 | XMS_ITS | Encounter Summary ---
Author Organization [facility] Address [address] [id number] Care Team Providers Care Soft Work Wrapper Examiner Name Role Phone Gopi Chan MD Primary Care Provider [phone] Reason for Referral * Consultation (Routine) - Closed Specialty Diagnoses / Procedures Referred By Jovanni t Referred To Contact Neurosurgery Diagnoses Left-sided low back pain with left-sided sciatica, unspecified chronicity Spinal stenosis of lumbar region, unspecified whether neurogenic claudication present Russ Bailey APRN [address] [place] [address] Phone: tel: fax: Referral ID Status Reason Start Date Expiration Date V isits Requested Visits Authorized [id number] Closed Specialty Services Required 05/26/2024 11/25/2025 1 1 Encounter Details Date Type Department Care Team (Late st Contact Info) Description 05/26/2024 [facility] [address] [place] [address] Russ Bailey APRN [address] [place] [address] Left-sided low back pain with [...] present documented in this encounter Care Teams Soft Work Wrapper Examiner Relationship Specialty Start Date End Date Gopi Chan MD [address] [place] [address] PCP - General 06/01/24 documented as of this encounter
== END 2024-12-13 23:59 | disposition home or self-care (01) ==
LOC: LAB.DROPOF 12-14 11:29
PROVIDERS: PCP Nurse Practitioner; Visit Provider Nurse Practitioner
DX: R31.9 Hematuria, unspecified (principal)
CPT/HCPCS: 87086

== ENCOUNTER 2024-12-14 15:18 | Outpatient (CLI) | payer OTHER, SELFPAY ==
--- OUTSIDE RECORDS SUMMARY | 2024-12-14 15:20 | XMS_ITS | Encounter Summary ---
Author Organization [facility] Address [address] [id number] Care Team Providers Care Academic Services Coordinator Name Role Phone Gopi Chan MD Primary Care Provider [phone] Reason for Referral * Consultation (Routine) - Closed Specialty Diagnoses / Procedures Referred By Jovanni t Referred To Contact Neurosurgery Diagnoses Left-sided low back pain with left-sided sciatica, unspecified chronicity Spinal stenosis of lumbar region, unspecified whether neurogenic claudication present Russ Bailey APRN [address] [place] [address] Phone: tel: fax: Referral ID Status Reason Start Date Expiration Date V isits Requested Visits Authorized [id number] Closed Specialty Services Required 05/26/2024 11/25/2025 1 1 Encounter Details Date Type Department Care Team (Late st Contact Info) Description 05/26/2024 [facility] [address] [place] [address] Russ Bailey APRN [address] [place] [address] Left-sided low back pain with [...] present documented in this encounter Care Teams Academic Services Coordinator Relationship Specialty Start Date End Date Gopi Chan MD [address] [place] [address] PCP - General 06/01/24 documented as of this encounter
--- OUTSIDE RECORDS SUMMARY | 2024-12-14 15:20 | XMS_ITS | Clinical Summary ---
Author Organization [facility] Address [address], [address] [place] [address] Care Team Providers Care Office Machine Inspector Name Role Phone Kyler Travis MD Primary Care Provider [phone] Allergies No known active allergies Medications ibuprofen [...] Insurance BCBS OUT OF STATE Care Teams Office Machine Inspector Relationship Specialty Start Date End Date Kyler Travis MD [address] [place] [address] [place] [phone] PCP - General 09/24/19
--- OUTSIDE RECORDS SUMMARY | 2024-12-14 15:20 | XMS_ITS | Clinical Summary ---
Author Organization [facility] Address [address] [place] [address] Phone Care Team Providers Care Counseling Case Manager Name Role Phone Charlie French DO, Viral Unavailable [phone] Simin Olea APRN Primary Care Provider [phone] Allergies Active Allergy Reactions Criticality Noted Date [...] left-sided low back pain 04/09/2022 Hypothyroid 06/16/2013 Immunizations Immunization Administration Dates Next Due Tdap 06/16/2013 Surgical History Surgery Date Site/Laterality Comments CYST REMOVAL chest midline sternum DENTAL SURGERY permanent retainer bottom TUBAL LIGATION 04/28/2003 - 04/27/2004 SHOULDER ARTHROSCOPY 12/11/2017 Left LEFT SHOULDER ARTHROSCOPY, SUBACROMIAL DECOMPRESSION, PROXIMAL BICEPS TENODESIS ; Surgeon: Merrill Link MD; Location: [facility]; Service: Orthopedics Medical devices from this [...] HEMOGLOBIN A1C < 7 Result Component 5.7( 4 9:39 AM EST) No Sharri Neal, RN Medical Devices Implanted Type Area Clinical Trial Coordinator Device Identifier Shelf Expiration Date Model / Serial / Lot Nelson Suture 1.3mm Y-Knot Flex - [id number] Implanted:Qty: 1 on 12/11/2017 by Merrill Link MD at [facility] Left: Shoulder CONMED:LINVATEC 11/01/2022 [id number] / / [id number] Procedures Procedure Name Priority Date/Time Associated Diagnosis Comments COMPREHENSIVE METABOLIC PANEL Routine 08/04/2024 LIPID PANEL REFLEX Routine 08/04/2024 MICROALBUMIN/CREATININ E RATIO URINE Routine 07/04/2023 9:39 AM EST Type 2 diabetes mellitus without complication, without long-term current use of insulin (HCC) HEMOGLOBIN A1C Routine 07/04/2023 9:39 AM EST Type 2 diabetes mellitus without complication, without long-term current use of insulin (HCC) HM DIABETES EYE EXAM Routine 03/08/2021 from Last 3 Months or Most Recently Relevant to Health Maintenance Results * LIPID PANEL REFLEX (08/04/2024) Triglycerides 83 MG/DL SEP OFFICE Comment:30-150 LDL Calculated 108.07 0 - 160 MG/DL SEP OFFICE Comment:100-129 HDL 52 >=40 MG/DL SEP OFFICE Comment:40-60 Blood VENOUS BLOOD / Unknown 08/04/2024 Simin aWshington Lefty CONSTRUCTION ADMINISTRATOR CHEMISTRY ORDERABLES Final Res ult Performing Organization Address [facility] Co de Phone Number SEP OFFICE * COMPREHENSIVE METABOLIC PANEL (08/04/2024) GFR Non Afr Am 91 >=60 mL/min/1.73 m2 SEP OFFICE Comment:>60 Glucose Lvl 99 MG/DL SEP OFFICE Comment:74-100 AST 21 U/L SEP OFFICE Comment:14-36 ALT 24 U/L SEP OFFICE Comment:12-78 Blood VENOUS BLOOD / Unknown 08/04/2024 [employer]ootPad Corporation[employer] CONSTRUCTION ADMINISTRATOR CHEMISTRY ORDERABLES Final Res ult Performing Organization Address City/[facility]/ZIP Co de Phone Number SEP OFFICE * MICROALBUMIN/CREATININE RATIO URINE (07/04/2023 9:39 AM EST) Urine Microalb <12.0 mg/L 07/04/2023 3:01 PM EST PREFERRED [employer] [facility] Urine Creatinine 65.6 mg/dL 07/04/19 24 3:01 PM EST PREFERRED [employer] [facility] Ur Microalb/Creat 024 3:01 PM EST [facility] [employer] [facility] Comment: Because the albumin level is below the level of detection in this urine specimen, the laboratory is unable to calculate a reliable albumin/creatinine ratio. Microalbuminuria is unlikely if the urine albumin concentration is less than 20- 30 mg/L in a random specimen. Urine URINE SPECIMEN COLLECTION / Unknown 07/04/2023 9:39 AM EST 07/04/2023 9:39 AM EST us Kyler Travis MD URINE ORDERABLES Final Result [facility] [employer] [facility] [address] [facility] , [place] [address] * (ABNORMAL) HEMOGLOBIN A1C (07/04/2023 9:39 AM EST) Hgb A1C 5.7(H) 4.2 - 5.6 % 07/04/2023 2:55 PM EST PREFERRED [employer], [facility] Est. Avg Glucose 117 mg/dL 07/04/2023 2:55 PM EST [facility] [employer] [facility] Blood VENOUS BLOOD / Unknown Venipuncture / Unknown 07/04/2023 9:39 AM EST 07/04/2023 9:39 AM EST Narrative PREFERRED [employer] [facility] - 07/04/2023 2:55 PM EST REFERENCE RANGE: Normal: 4.0-5.6% Pre-diabetes: 5.7-6.4% Provisional diagnosis of diabetes: >6.4% Hgb F>10% and anything which shortens red cell survival, such as hemolytic anemia, or unstable hemoglobin variants such as HbSS, HbSC, or HbCC, will lower the HbA1c value associated with a given level of glycemic control. us Kyler Travis MD CHEMISTRY ORDERABLES Final Resu lt PREFERRED LAB [employer] [facility] [address] [facility] , [place] [address] * DIABETES EYE EXAM (03/08/2021) Left Diabetic Retinopathy Not Present Present/Not Present SEP OFFICE Right Diabetic Retinopathy Not Present Present/Not Present SEP OFFICE us [facility] Provider HEALTH MAINTENANCE Final Res ult Performing Organization Address City/State/[facility] Co de Phone Number SEP OFFICE from Last 3 Months or Most Recently Relevant to Health Maintenance Insurance Advance Directives For more information, please contact: [phone] * Full Code (Latest Code Status on File) Date Activated Date Inactivated Comments 12/11/2017 11:28 AM 12/11/2017 4:36 PM Care Teams Counseling Case Manager Relationship Specialty Start Date End Date Simin Olea APRN [address] [facility] [address] [place] [address] PCP - General Nurse Practitioner 08/26/24 Rajiv Guerra V, DO [address] [place] [address] Family Medicine 06/16/13
--- OUTSIDE RECORDS SUMMARY | 2024-12-14 15:20 | XMS_ITS | Clinical Summary ---
Author Organization [facility] Address [address] [id number] Care Team Providers Care Hull Outfit Supervisor Name Role Phone Gopi Chan MD Primary Care Provider [phone] Allergies No known active allergies Medications losartan-hydro [...] 10/16/2006 [facility]-Cervical Cancer Screening 10/16/2009 [facility]-HPV/Cotest 10/16/2009 [id number] Vaccine ( season) 2023 CT Colonography 10/16/2024 [...] to complete this topic Insurance Care Teams Hull Outfit Supervisor Relationship Specialty Start Date End Date Gopi Chan MD [facility] [place] [address] PCP - General 06/01/24
--- NOTE | 2024-12-14 15:30 | CT_ITS ---
PROCEDURE INFORMATION: Exam: CT Abdomen And Pelvis With Contrast Exam date and time: 12/14/2024 3:58 PM Age: 44 years old Clinical indication: Abdominal pain; Flank; Left; Additional info: Left flank pain, left sided abd pain, hematuria TECHNIQUE: Imaging protocol: Computed tomography of the abdomen and pelvis with contrast. Radiation optimization: All CT scans at this facility use at least one of these dose optimization techniques: automated exposure control; mA and/or kV adjustment per patient size (includes targeted exams where dose is matched to clinical indication); or iterative reconstruction. Contrast material: ISOVUE; Contrast volume: 75 ml; Contrast route: IV; COMPARISON: MR LUMBAR SPINE WO CON 05/14/2024 4:52 PM FINDINGS: Liver: Normal. No mass. Gallbladder and biliary ducts: Normal. No calcified stones. No ductal dilation. Pancreas: Normal. No ductal dilation. Spleen: Normal. No splenomegaly. Adrenal glands: Normal. No mass. Kidneys and ureters: Normal. No hydronephrosis. Stomach and bowel: Unremarkable. No obstruction. No mucosal thickening. Appendix: No evidence of appendicitis. Intraperitoneal space: Unremarkable. No free air. No significant fluid collection. Vasculature: Unremarkable. No abdominal aortic aneurysm. Lymph nodes: Unremarkable. No enlarged lymph nodes. Urinary bladder: Unremarkable as visualized. Reproductive: 2.2 cm left ovarian cyst. Bones/joints: Unremarkable. No acute fracture. Soft tissues: Unremarkable. IMPRESSION: Small left ovarian cyst.
[2024-12-14 15:44] LABS: Blood Urea Nitrogen 10 mg/dl (7-17); Creatinine,Serum 0.70 mg/dl (0.52-1.04); Estimated Glomerular Filt Rate 90 ml/min (>60); GFR (African American) 109 ML/MIN (>60)
[2024-12-14] MEDS: IOPAMIDOL-370 (76%);100ML BOTTLE 75 ML IV (16:16)
[2024-12-14] MEDS: SODIUM CHLORIDE 0.9% 10ML SYR (RAD ONLY) 10 ML IV (16:16)
== END 2024-12-14 23:59 ==
LOC: RAD 15:18
PROVIDERS: PCP Nurse Practitioner; Visit Provider Nurse Practitioner
DX: N83.202 Unspecified ovarian cyst, left side (principal)
CPT/HCPCS: 36415; 74177; 82565; 84520; Q9967

== ENCOUNTER 2025-02-03 08:18 | Outpatient (CLI) | payer OTHER, SELFPAY ==
[2025-02-03 20:21] LABS: Hematocrit 35.5 % (37.0-47.0); Hemoglobin 10.9 g/dL (12.2-16.2); Immature Granulocytes % 0.3 %; Mean Corpuscular HGB Conc 30.7 g/dL (31.8-35.4); Mean Corpuscular Hemoglobin 26.2 pg (27.0-31.2); Mean Corpuscular Volume 85.3 fl (81-99); Nucleated Red Blood Cells % 0 %; Platelet Count 447 K/mm3 (142-424); Red Blood Count 4.16 M/mm3 (4.20-5.40); Red Cell Distribution Width-SD 49.6 fL; White Blood Count 7.7 K/mm3 (4.8-10.8)
[2025-02-03 20:22] LABS: Alanine Aminotransferase 34 U/L (12-78); Albumin Level 4.1 g/dl (3.5-5.0); Albumin/Globulin Ratio 1.6 (1.1-1.8); Alkaline Phosphatase 83 U/L (38-126); Anion Gap 16.4 mEq/L (5-15); Aspartate Amino Transferase 24 U/L (14-36); Bilirubin,Total 0.4 mg/dl (0.2-1.3); Blood Urea Nitrogen 11 mg/dl (7-17); Calcium 9.2 mg/dl (8.4-10.2); Carbon Dioxide 26 mmol/L (22.0-30.0); Chloride 100 mmol/L (98-107); Cholesterol 197 mg/dl (140-200); Creatinine,Serum 0.70 mg/dl (0.52-1.04); Estimated Glomerular Filt Rate 90 ml/min (>60); GFR (African American) 109 ML/MIN (>60); Globulin 2.5 g/dL (1.3-3.2); Glucose 69 mg/dl (74-100); HDL Cholesterol 43 mg/dl (40-60); Magnesium 1.9 mg/dl (1.6-2.3); Phosphorous 3.9 mg/dl (2.5-4.5); Potassium 4.4 mmoL/L (3.5-5.1); Sodium 138 mmol/L (136-145); Total Protein,Serum 6.6 g/dl (6.3-8.2); Triglycerides 131 mg/dl (30-150)
[2025-02-03 20:37] LABS: Free T4 (Free Thyroxine) 1.21 ng/dl (0.78-2.19)
[2025-02-03 20:52] LABS: Thyroid Stimulating Hormone 0.23 uIU/mL (0.465-4.68)
[2025-02-03 21:11] LABS: Vitamin B12 883 pg/mL (239-931)
[2025-02-03 21:12] LABS: Hemoglobin A1C 6.0 % (4.0-6.0)
[2025-02-03 21:30] LABS: Folate 6.06 ng/mL
[2025-02-03 22:41] LABS: Ferritin 7.81 ng/ml (6.24-137)
--- OUTSIDE RECORDS SUMMARY | 2025-02-04 02:21 | XMS_ITS | Encounter Summary ---
Author Organization [facility] Address [address] [id number] Care Team Providers Care Dietary Internship Name Role Phone Gopi Chan MD Primary Care Provider [phone] Reason for Referral * Consultation (Routine) - Closed Specialty Diagnoses / Procedures Referred By Jovanni t Referred To Contact Neurosurgery Diagnoses Left-sided low back pain with left-sided sciatica, unspecified chronicity Spinal stenosis of lumbar region, unspecified whether neurogenic claudication present Russ Bailey APRN [address] [place] [address] Phone: tel: fax: Referral ID Status Reason Start Date Expiration Date V isits Requested Visits Authorized [id number] Closed Specialty Services Required 05/26/2024 11/25/2025 1 1 Encounter Details Date Type Department Care Team (Late st Contact Info) Description 05/26/2024 [facility] [address] [place] [address] Russ Bailey APRN [address] [place] [address] Left-sided low back pain with left-sided sciatica, [...] present documented in this encounter Care Teams Dietary Internship Relationship Specialty Start Date End Date Gopi Chan MD [address] [place] [address] PCP - General 06/01/24 documented as of this encounter
--- OUTSIDE RECORDS SUMMARY | 2025-02-04 02:21 | XMS_ITS | Clinical Summary ---
Author Organization [facility] Address [address] [id number] Care Team Providers Care Lacquer Sprayer Name Role Phone Gopi Chan MD Primary Care Provider [phone] Allergies No known active allergies Medications losartan-hydro [...] Date Last Done Comments [facility]-Depression Screening 1979 [facility]-Infant/Child/Adol SDOH Screenings 1979 [facility]-Varicella Vaccines (1 of 2 - 13+ 2-dose series) 10/16/1992 [facility]- SDOH Screenings 10/16/1997 [facility]-Adult SDOH Screenings 10/16/1997 [facility]-Hepatitis B Vaccines (1 of 3 - 19+ 3-dose series) 10/16/1998 [facility]-Pap Smear 10/16/2000 HPV Vaccines (1 - 3-dose SCD M series) 10/16/2006 [facility]-Cervical Cancer Screening 10/16/2009 [facility]-HPV/Cotest 10/16/2009 CT Colonography 10/16/2024 Colonoscopy 10/16/2024 FIT-DNA 10/16/2024 FIT 10/16/2024 FOBT 10/16/2024 Sigmoidoscopy 10/16/2024 [facility]-Colorectal Cancer Screening 10/16/2024 [id number] Vaccine ( season) 2024 [facility]-Influenza Vaccine (#1) 2024 02/09/2024 [facility]-Zoster Vaccines [...] to complete this topic Insurance Care Teams Lacquer Sprayer Relationship Specialty Start Date End Date Gopi Chan MD [facility] [place] [address] PCP - General 06/01/24
[2025-02-05 10:39] LABS: Triiodothyronine (T3) Free 3.1 pg/mL (2.0-4.4)
== END 2025-02-03 23:59 | disposition home or self-care (01) ==
LOC: LAB.DROPOF 02-04 02:19
PROVIDERS: PCP Nurse Practitioner; Visit Provider Nurse Practitioner
DX: R20.2 Paresthesia of skin (principal); R79.89 Other specified abnormal findings of blood chemistry; E11.9 Type 2 diabetes mellitus without complications; E78.5 Hyperlipidemia, unspecified; I10 Essential (primary) hypertension
CPT/HCPCS: 80053; 80061; 82607; 82728; 82746; 83036; 83735; 84100; 84425; 84439; 84443; 84480; 84481; 85025; 86225; 86235

== ENCOUNTER 2025-02-09 08:14 | Outpatient (CLI) | payer OTHER, SELFPAY ==
[2025-02-09 16:35] LABS: Hematocrit 36.8 % (37.0-47.0); Hemoglobin 11.4 g/dL (12.2-16.2); Immature Granulocytes % 0.2 %; Mean Corpuscular HGB Conc 31.0 g/dL (31.8-35.4); Mean Corpuscular Hemoglobin 26.4 pg (27.0-31.2); Mean Corpuscular Volume 85.2 fl (81-99); Nucleated Red Blood Cells % 0 %; Platelet Count 415 K/mm3 (142-424); Red Blood Count 4.32 M/mm3 (4.20-5.40); Red Cell Distribution Width-SD 47.8 fL; Reticulocyte % (Auto) 1.3 % (0.9-3.2); White Blood Count 8.0 K/mm3 (4.8-10.8)
[2025-02-09 16:48] LABS: INR 0.98 (0.9-1.1); Prothrombin Time 10.9 seconds (10.1-12.5)
[2025-02-09 19:20] LABS: Iron 44 ug/dL (37-170)
[2025-02-09 19:32] LABS: Total Iron Binding Capacity 461 ug/dL (265-497)
--- OUTSIDE RECORDS SUMMARY | 2025-02-10 11:21 | XMS_ITS | Clinical Summary ---
Author Organization [facility] Address [address] [place] [address] Phone Care Team Providers Care Contact Lens Edge Buffer Name Role Phone Charlie French DO, Viral Unavailable [phone] Simin Olea APRN Primary Care Provider [phone] Allergies Active Allergy Reactions Criticality Noted Date [...] TENODESIS ; Surgeon: Merrill Link MD; Location: [facility]; Service: Orthopedics Medical devices from this [...] (2 - Td or Tdap) 06/16/2023 06/16/2013 Hemoglobin A1c 01/04/2024 07/04/2023, 12/27, 05/30/2022, Additional history exists Kidney Health: uACR 07/03/2024 07/04/2023 Cologuard 10/16/2024 Colon Cancer Screening 10/16/2024 Colonoscopy 10/16/2024 FIT 10/16/2024 Sigmoidoscopy 10/16/2024 Virtual Colonography 10/16/2024 COVID-19 Vaccine ( season) 2024 Influenza Vaccine (#1) 2024 7 (Declined), 06/16/2015 (Declined) Diabetic Eye Exam 07/07/2025 07/08/2023, 03/08/2021 Kidney Health: eGFR 08/04/2025 08/04/2024, 07/04/2023, 05/30/2022, Additional history exists Lipids 08/04/2025 08/04/2024, 11/2023, 05/30/2022, Additional history exists Meningococcal B Vaccine [...] Neal, RN Medical Devices Implanted Type Area Fountain Roller Assembler Device Identifier Shelf Expiration Date Model / Serial / Lot [place] Suture 1.3mm Y-Knot Flex - [id number] Implanted:Qty: 1 on 12/11/2017 by Merrill Link MD at [facility] Left: Shoulder CONMED:LINVATEC 11/01/2022 [id number] / / [id number] Procedures Procedure Name Priority Date/Time Associated Diagnosis [...] Blood VENOUS BLOOD / Unknown 08/04/2024 Simin Washington Lefty ASTRONOMY INSTRUCTOR CHEMISTRY ORDERABLES Final Res ult Performing Organization Address [facility] Co de Phone Number SEP OFFICE * COMPREHENSIVE METABOLIC PANEL (08/04/2024) GFR Non Afr Am 91 >=60 mL/min/1.73 m2 SEP OFFICE Comment:>60 Glucose Lvl 99 MG/DL SEP OFFICE Comment:74-100 AST 21 U/L SEP OFFICE Comment:14-36 ALT 24 U/L SEP OFFICE Comment:12-78 Blood VENOUS BLOOD / Unknown 08/04/2024 [employer] ASTRONOMY INSTRUCTOR CHEMISTRY ORDERABLES Final Res ult Performing Organization Address City/[facility]/ZIP Co de Phone Number SEP OFFICE * MICROALBUMIN/CREATININE RATIO URINE (07/04/2023 9:39 AM EST) Urine Microalb <12.0 mg/L 07/04/2023 3:01 PM EST PREFERRED [employer] [facility] Urine Creatinine 65.6 mg/dL 07/04/19 24 3:01 PM EST PREFERRED [employer] [facility] Ur Microalb/Creat 024 3:01 PM EST [facility] [employer] [facility] Comment: Because the albumin level is [...] Kyler Travis MD URINE ORDERABLES Final Result [facility] [employer] [facility] [address] [facility] , [place] [address] * (ABNORMAL) HEMOGLOBIN A1C (07/04/2023 9:39 AM EST) Hgb A1C 5.7(H) 4.2 - 5.6 % 07/04/2023 2:55 PM EST PREFERRED [employer], [facility] Est. Avg Glucose 117 mg/dL 07/04/2023 2:55 PM EST [facility] [employer] [facility] Blood VENOUS BLOOD / Unknown Venipuncture / Unknown 07/04/2023 9:39 AM EST 07/04/2023 9:39 AM EST Narrative PREFERRED [employer] [facility] - 07/04/2023 2:55 PM EST REFERENCE [...] CHEMISTRY ORDERABLES Final Resu lt PREFERRED LAB [employer], [facility] [address] [facility] , [place] [address] * DIABETES EYE EXAM (03/08/2021) Left Diabetic Retinopathy Not Present Present/Not Present SEP OFFICE Right Diabetic Retinopathy Not Present Present/Not Present SEP OFFICE us [facility] Provider HEALTH MAINTENANCE Final Res ult Performing Organization Address City/State/[facility] Co de Phone Number SEP OFFICE from Last 3 Months or Most Recently Relevant to Health Maintenance Insurance Advance Directives For more information, please contact: [phone] * Full Code (Latest Code Status on File) Date Activated Date Inactivated Comments 12/11/2017 11:28 AM 12/11/2017 4:36 PM Care Teams Contact Lens Edge Buffer Relationship Specialty Start Date End Date Simin Olea APRN [address] [facility] [address] [place] [address] PCP - General Nurse Practitioner 08/26/24 Rajiv Guerra V, DO [address] [place] [address] Family Medicine 06/16/13
--- OUTSIDE RECORDS SUMMARY | 2025-02-10 11:21 | XMS_ITS | Clinical Summary ---
Author Organization [facility] Address [address] [id number] Care Team Providers Care First Breaker Feeder Name Role Phone Gopi Chan MD Primary Care Provider [phone] Allergies No known active allergies Medications losartan-hydro [...] 10/16/2024 Sigmoidoscopy 10/16/2024 [facility]-Colorectal Cancer Screening 10/16/2024 [id number] Vaccine ( season) 2024 [facility]-Influenza Vaccine (#1) [...] to complete this topic Insurance Care Teams First Breaker Feeder Relationship Specialty Start Date End Date Gopi Chan MD [facility] [place] [address] PCP - General 06/01/24
--- OUTSIDE RECORDS SUMMARY | 2025-02-10 11:22 | XMS_ITS | Encounter Summary ---
Author Organization [facility] Address [address] [phone] Care Team Providers Care Marine Drafter Name Role Phone Gopi Chan MD Primary Care Provider [phone] Reason for Referral * Consultation (Routine) - Closed Specialty Diagnoses / Procedures Referred By Jovanni t Referred To Contact Neurosurgery Diagnoses Left-sided low back pain with left-sided sciatica, unspecified chronicity Spinal stenosis of lumbar region, unspecified whether neurogenic claudication present Russ Bailey APRN [address] [place] [address] Phone: tel: fax: Referral ID Status Reason Start Date Expiration Date V isits Requested Visits Authorized [id number] Closed Specialty Services Required 05/26/2024 11/25/2025 1 1 Encounter Details Date Type Department Care Team (Late st Contact Info) Description 05/26/2024 [facility] [address] [place] [address] Russ Bailey APRN [address] [place] [address] Left-sided low back pain with left-sided sciatica, [...] present documented in this encounter Care Teams Marine Drafter Relationship Specialty Start Date End Date Gopi Chan MD [address] [place] [address] PCP - General 06/01/24 documented as of this encounter
--- OUTSIDE RECORDS SUMMARY | 2025-02-10 11:22 | XMS_ITS | Clinical Summary ---
Author Organization [facility] Address [address] [facility], [address] [place] [address] Care Team Providers Care Ux Lead Name Role Phone Kyelr Travis MD Primary Care Provider [phone] Allergies No known active allergies Medications ibuprofen [...] Insurance BCBS OUT OF STATE Care Teams Ux Lead Relationship Specialty Start Date End Date Kyler Travis MD [address] [place] [address] [place] [address] PCP - General 09/24/19
== END 2025-02-09 23:59 | disposition home or self-care (01) ==
LOC: LAB.DROPOF 02-10 11:18
PROVIDERS: PCP Nurse Practitioner; Visit Provider Nurse Practitioner
DX: D64.9 Anemia, unspecified (principal); D69.9 Hemorrhagic condition, unspecified
CPT/HCPCS: 83540; 83550; 85025; 85044; 85610

== ENCOUNTER 2025-03-08 13:46 | Outpatient (CLI) | payer OTHER, SELFPAY ==
[2025-03-08 19:13] LABS: Iron 65 ug/dL (37-170)
[2025-03-08 19:22] LABS: Total Iron Binding Capacity 428 ug/dL (265-497)
--- OUTSIDE RECORDS SUMMARY | 2025-03-09 13:34 | XMS_ITS | Encounter Summary ---
Author Organization [facility] Address [address] [phone] Care Team Providers Care Hook And Eye Attacher Name Role Phone Gopi Chan MD Primary Care Provider [phone] Reason for Referral * Consultation (Routine) - Closed Specialty Diagnoses / Procedures Referred By Jovanni t Referred To Contact Neurosurgery Diagnoses Left-sided low back pain with left-sided sciatica, unspecified chronicity Spinal stenosis of lumbar region, unspecified whether neurogenic claudication present Russ Bailey APRN [address] [place] [address] Phone: tel: fax: Referral ID Status Reason Start Date Expiration Date V isits Requested Visits Authorized [id number] Closed Specialty Services Required 05/26/2024 11/25/2025 1 1 Encounter Details Date Type Department Care Team (Late st Contact Info) Description 05/26/2024 [facility] [address] [place] [address] Russ Bailey APRN [address] [place] [address] Left-sided low back pain with left-sided sciatica, [...] present documented in this encounter Care Teams Hook And Eye Attacher Relationship Specialty Start Date End Date Gopi Chan MD [address] [place] [address] PCP - General 06/01/24 documented as of this encounter
--- OUTSIDE RECORDS SUMMARY | 2025-03-09 13:34 | XMS_ITS | Clinical Summary ---
Author Organization [facility] Address [address] [facility], [address] [place] [address] Care Team Providers Care Slip Feeder Name Role Phone Kyler Travis MD Primary Care Provider [phone] Allergies No known active allergies Medications ibuprofen [...] Insurance BCBS OUT OF STATE Care Teams Slip Feeder Relationship Specialty Start Date End Date Kyler Travis MD [address] [place] [address] [place] [address] PCP - General 09/24/19
--- OUTSIDE RECORDS SUMMARY | 2025-03-09 13:34 | XMS_ITS | Clinical Summary ---
Author Organization [facility] Address [address] [place] [address] Phone Care Team Providers Care Social Security Assessor Name Role Phone Charlie French DO, Viral Unavailable [phone] Simin Olea APRN Primary Care Provider [phone] Allergies Active Allergy Reactions Criticality Noted Date [...] TENODESIS ; Surgeon: Merrill Link MD; Location: [facility]; Service: Orthopedics Medical devices from this [...] Neal, RN Medical Devices Implanted Type Area Back Hoe Operator Device Identifier Shelf Expiration Date Model / Serial / Lot [place] Suture 1.3mm Y-Knot Flex - [id number] Implanted:Qty: 1 on 12/11/2017 by Merrill Link MD at [facility] Left: Shoulder CONMED:[employer]VATEC 11/01/2022 [id number] / / [id number] Procedures Procedure Name Priority Date/Time Associated Diagnosis Comments COMPREHENSIVE METABOLIC PANEL Routine 08/04/2024 LIPID PANEL REFLEX Routine 08/04/2024 ALBUMIN/CREATININE RATIO, RANDOM URINE Routine 07/04/2023 9:39 AM EST Type [...] BLOOD / Unknown 08/04/2024 Simin Washington Lefty HVAC R INSTRUCTOR CHEMISTRY ORDERABLES Final Res ult Performing Organization Address [facility] Co de Phone Number SEP OFFICE * COMPREHENSIVE METABOLIC PANEL (08/04/2024) GFR Non Afr Am 91 >=60 mL/min/1.73 m2 SEP OFFICE Comment:>60 Glucose Lvl 99 MG/DL SEP OFFICE Comment:74-100 AST 21 U/L SEP OFFICE Comment:14-36 ALT 24 U/L SEP OFFICE Comment:12-78 Blood VENOUS BLOOD / Unknown 08/04/2024 [employer] HVAC R INSTRUCTOR CHEMISTRY ORDERABLES Final Res ult Performing Organization Address City/[facility] Co de Phone Number SEP OFFICE * MICROALBUMIN/CREATININE RATIO URINE (07/04/2023 9:39 AM EST) Urine Albumin <12.0 mg/L 07/04/2023 3:01 PM EST PREFERRED [employer] [facility] Urine Creatinine 65.6 mg/dL 07/04/19 3:01 PM EST [facility] [employer] [facility] Ur Albumin/Creat Ratio 07/04/2023 3:01 PM EST [facility] [employer] [facility] Comment: Because the albumin level is [...] Kyler Travis MD URINE ORDERABLES Final Result [facility] [employer] [address] , [place] [address] * (ABNORMAL) HEMOGLOBIN A1C (07/04/2023 9:39 AM EST) Hgb A1C 5.7(H) 4.2 - 5.6 % 07/04/2023 2:55 PM EST PREFERRED [employer] [facility] Est. Avg Glucose 117 mg/dL 07/04/2023 2:55 PM EST [facility] [employer] [facility] Blood VENOUS BLOOD / Unknown Venipuncture / Unknown 07/04/2023 9:39 AM EST 07/04/2023 9:39 AM EST Narrative [facility] [employer] [facility] - 07/04/2023 2:55 PM EST REFERENCE RANGE: Normal: 4.0-5.6% Pre-diabetes: 5.7-6.4% Provisional diagnosis of diabetes: >6.4% Hgb F>10% and anything which shortens red cell survival, such as hemolytic anemia, or unstable hemoglobin variants such as HbSS, HbSC, or HbCC, will lower the HbA1c value associated with a given level of glycemic control. us Kyler Travis MD CHEMISTRY ORDERABLES Final Resu lt PREFERRED [employer], [facility] [address] [facility] , [place] [address] * DIABETES EYE EXAM (03/08/2021) Left Diabetic Retinopathy Not Present Present/Not Present SEP OFFICE Right Diabetic Retinopathy Not Present Present/Not Present SEP OFFICE us Historical Provider HEALTH MAINTENANCE Final Res ult SEP OFFICE from Last 3 Months or Most Recently Relevant to Health Maintenance Insurance [place] [id number] Advance Directives For more information, please contact: [phone] * Full Code (Latest Code Status on File) Date Activated Date Inactivated Comments 12/11/2017 11:28 AM 12/11/2017 4:36 PM Care Teams Social Security Assessor Relationship Specialty Start Date End Date Simin Olea APRN [address] [facility] [address] [place] [address] PCP - General Nurse Practitioner 08/26/24 Rajiv Guerra DO [address] [place] [address] Family Medicine 06/16/13
--- OUTSIDE RECORDS SUMMARY | 2025-03-09 13:34 | XMS_ITS | Clinical Summary ---
Author Organization [facility] Address [address] [id number] Care Team Providers Care Table Operator Name Role Phone Gopi Chan MD Primary Care Provider [phone] Allergies No known active allergies Medications losartan-hydro [...] 10/16/2024 Sigmoidoscopy 10/16/2024 [facility]-Colorectal Cancer Screening 10/16/2024 [id number] Vaccine ( season) 2024 [facility]-Influenza Vaccine (#1) [...] to complete this topic Insurance Care Teams Table Operator Relationship Specialty Start Date End Date Gopi Chan MD [facility] [place] [address] PCP - General 06/01/24
== END 2025-03-08 23:59 | disposition home or self-care (01) ==
LOC: LAB.DROPOF 03-09 13:17
PROVIDERS: PCP Nurse Practitioner; Visit Provider Nurse Practitioner
DX: D64.9 Anemia, unspecified (principal)
CPT/HCPCS: 83540; 83550